=== PATIENT | male | born 1935 | race Caucasian/White ===

== ENCOUNTER 2018-08-14 02:26 | Inpatient (IN) | payer OTHER ==
[2018-08-14] MEDS: KETOROLAC 15 MG INJ IM (05:43)
[2018-08-14] MEDS: SOD CHLORIDE 0.9% 1,000 ML IV (11:25)
[2018-08-14 11:43] LABS: ADD MAN DIFF? NO
[2018-08-14 11:51] LABS: BASOPHILS % 0.1 % (0.0-2.0); EOSINOPHILS % 0.1 % (0.0-7.0); HEMATOCRIT 41.7 % (42.0-52.0); HEMOGLOBIN 13.6 g/dl (14.0-18.0); LYMPHOCYTES # 0.7 10^3/ul (0.8-2.9); MEAN CORPUSCULAR HEMOGLOBIN 30.8 pg (29.0-33.0); MEAN CORPUSCULAR HGB CONC 32.6 g/dl (32.0-37.0); MEAN CORPUSCULAR VOLUME 94.3 fl (82.0-101.0); MONOCYTE # 0.8 10^3/ul (0.3-0.9); MONOCYTES % 10.5 % (0.0-11.0); NEUTROPHIL # 5.8 10^3/ul (1.6-7.5); POSITIVE DIFF @See below; RED BLOOD COUNT 4.42 10^6/ul (4.70-6.10); RED CELL DISTRIBUTION WIDTH 13.8 % (11.5-14.5)
[2018-08-14 11:51] LABS: WHITE BLOOD COUNT 7.4 10^3/ul (4.8-10.8)
[2018-08-14 12:05] LABS: PLATELET COUNT 144 10^3/UL (140-415)
[2018-08-14 12:12] LABS: ANION GAP 9 (5-13); BLOOD UREA NITROGEN 19 mg/dl (7-20); CALCIUM 8.8 mg/dl (8.4-10.2); CARBON DIOXIDE 31 mmol/L (21-31); CHLORIDE 99 mmol/L (97-110); CREATININE 0.94 mg/dl (0.61-1.24); GLUCOSE 262 mg/dl (70-220); POTASSIUM 4.1 mmol/L (3.5-5.1); SODIUM 139 mmol/L (135-144)
[2018-08-14] MEDS: ASPIRIN 325 MG TAB PO (12:41)
[2018-08-14] MEDS ORDERED: ONDANSETRON 4 MG INJ IV ×2 (13:00→14:00)
[2018-08-14] MEDS ORDERED: ACETAMINOPHEN 325 MG TAB PO (13:00)
[2018-08-14] MEDS ORDERED: NITROGLYCERIN (SL) 0.4 MG TAB SL (14:00)
[2018-08-14] MEDS ORDERED: NACL 0.9% 3 ML SYG IV (14:00)
[2018-08-14] MEDS ORDERED: morphine 2 MG INJ IV (14:00)
[2018-08-14] MEDS ORDERED: GLUCOSE GEL 15 GRAM TUBE BUCCAL (15:00)
[2018-08-14] MEDS ORDERED: DEXTROSE 50% 50 ML SYRINGE IV ×2 (15:00)
[2018-08-14] MEDS ORDERED: GLUCAGON 1 MG INJ IM (15:00)
[2018-08-14] MEDS ORDERED: GLUCOSE GEL 15 GRAM TUBE PO ×2 (15:00)
[2018-08-14] MEDS ORDERED: hydrALAzine 20 MG INJ IV (16:00)
[2018-08-14] MEDS: ACETAMINOPHEN 325 MG TAB PO (16:35)
[2018-08-14] MEDS: METOPROLOL 25 MG TAB PO (16:36)
[2018-08-14 17:36] LABS: CREATINE KINASE 877 IU/L (23-200)
[2018-08-14 17:49] LABS: CK INDEX 0.3; CK-MB 2.67 ng/ml (0.0-2.4)
[2018-08-14 17:52] LABS: TROPONIN-I 0.346 ng/ml (0.000-0.120)
[2018-08-14] MEDS ORDERED: INSULIN ASPART [NOVOLOG] 3 ML PEN SC (17:55)
[2018-08-14] MEDS: FAMOTIDINE 20 MG TAB PO (21:52)
[2018-08-14] MEDS: INSULIN GLARGINE [LANTus] (100 UNITS/ML) SYG SC (21:56)
[2018-08-14] MEDS: LISINOPRIL 10 MG TAB PO (21:58)
[2018-08-14] MEDS: DEXTROSE 5%-0.45% NACL 1,000 ML IV (21:59)
[2018-08-14] MEDS: INSULIN ASPART [NOVOLOG] 3 ML PEN SC (22:07)
[2018-08-14 23:30] LABS: LACTIC ACID 1.5 mmol/L (0.5-2.0)
[2018-08-14 23:30] LABS: CREATINE KINASE 759 IU/L (23-200)
[2018-08-14 23:43] LABS: CK INDEX 0.3; CK-MB 2.24 ng/ml (0.0-2.4); TROPONIN-I 0.258 ng/ml (0.000-0.120)
[2018-08-15] MEDS: INSULIN ASPART [NOVOLOG] 3 ML PEN SC ×5 (00:35→16:34)
[2018-08-15] MEDS: ACCU-CHEK XX (00:59)
[2018-08-15 03:52] LABS: ADD MAN DIFF? NO
[2018-08-15 04:02] LABS: BASOPHILS % 0.2 % (0.0-2.0); EOSINOPHILS % 0.4 % (0.0-7.0); HEMATOCRIT 35.1 % (42.0-52.0); HEMOGLOBIN 11.6 g/dl (14.0-18.0); LYMPHOCYTES # 1.1 10^3/ul (0.8-2.9); LYMPHOCYTES % 19.4 % (15.0-51.0); MEAN CORPUSCULAR HEMOGLOBIN 31.2 pg (29.0-33.0); MEAN CORPUSCULAR VOLUME 94.4 fl (82.0-101.0); MEAN PLATELET VOLUME 9.6 fl (7.4-10.4); MONOCYTE # 0.7 10^3/ul (0.3-0.9); MONOCYTES % 13.2 % (0.0-11.0); NEUTROPHIL # 3.6 10^3/ul (1.6-7.5); NEUTROPHILS % 65.7 % (39.0-77.0); PLATELET COUNT 117 10^3/UL (140-415); RED BLOOD COUNT 3.72 10^6/ul (4.70-6.10); RED CELL DISTRIBUTION WIDTH 13.7 % (11.5-14.5)
[2018-08-15 04:02] LABS: WHITE BLOOD COUNT 5.5 10^3/ul (4.8-10.8)
[2018-08-15 04:12] LABS: LACTIC ACID 1.4 mmol/L (0.5-2.0)
[2018-08-15 04:16] LABS: ALANINE AMINOTRANSFERASE 25 IU/L (13-69); ALBUMIN 2.9 g/dl (3.3-4.9); ALBUMIN/GLOBULIN RATIO 0.93; ALKALINE PHOSPHATASE 64 IU/L (42-121); ANION GAP 7 (5-13); ASPARTATE AMINO TRANSFERASE 33 IU/L (15-46); BILIRUBIN,INDIRECT 0.6 mg/dl (0-1.1); BILIRUBIN,TOTAL 0.6 mg/dl (0.2-1.3); BLOOD UREA NITROGEN 22 mg/dl (7-20); CARBON DIOXIDE 30 mmol/L (21-31); CHLORIDE 103 mmol/L (97-110); CHOL/HDL RATIO 4.1 RATIO; CHOLESTEROL 100 mg/dl (100-200); CREATININE 0.77 mg/dl (0.61-1.24); GLUCOSE 175 mg/dl (70-220); HDL CHOLESTEROL 24 mg/dl (31-75); LDL CHOLESTEROL,CALCULATED 66 mg/dl; MAGNESIUM 1.8 mg/dl (1.7-2.5); PHOSPHORUS 3.2 mg/dl (2.5-4.9); POTASSIUM 3.8 mmol/L (3.5-5.1); SODIUM 140 mmol/L (135-144); TRIGLYCERIDES 51 mg/dl (0-149)
[2018-08-15 04:25] LABS: HEMOGLOBIN A1C 7.3 % (0-5.9)
[2018-08-15] MEDS: ACETAMINOPHEN 325 MG TAB PO ×2 (05:44→20:31)
[2018-08-15] MEDS: METOPROLOL 25 MG TAB PO (08:26)
[2018-08-15] MEDS: LISINOPRIL 10 MG TAB PO (08:28)
[2018-08-15] MEDS: FAMOTIDINE 20 MG TAB PO ×2 (08:28→20:30)
[2018-08-15] MEDS: ASPIRIN 81 MG TAB PO (08:28)
[2018-08-15] MEDS: ENOXAPARIN 40 MG/0.4 ML SYG SC (08:40)
[2018-08-15] MEDS: DEXTROSE 5%-0.45% NACL 1,000 ML IV (11:36)
[2018-08-15] MEDS: Insulin NOVOLOG SS MILD Algorithm (SS with meals and bedtime) SC (20:47)
[2018-08-15] MEDS: INSULIN GLARGINE [LANTus] (100 UNITS/ML) SYG SC (20:48)
[2018-08-15] MEDS ORDERED: INSULIN ASPART [NOVOLOG] 3 ML PEN SC (21:00)
[2018-08-16] MEDS: ACCUCHECK AT 2AM (Patients on SS coverage) XX (02:00)
[2018-08-16 06:25] LABS: ADD MAN DIFF? NO
[2018-08-16 06:27] LABS: WHITE BLOOD COUNT 6.9 10^3/ul (4.8-10.8)
[2018-08-16 06:27] LABS: BASOPHILS % 0.3 % (0.0-2.0); EOSINOPHILS # 0.2 10^3/ul (0.0-0.5); EOSINOPHILS % 3.2 % (0.0-7.0); HEMATOCRIT 38.7 % (42.0-52.0); HEMOGLOBIN 12.8 g/dl (14.0-18.0); LYMPHOCYTES # 1.8 10^3/ul (0.8-2.9); LYMPHOCYTES % 26.6 % (15.0-51.0); MEAN CORPUSCULAR HEMOGLOBIN 31.4 pg (29.0-33.0); MEAN CORPUSCULAR HGB CONC 33.1 g/dl (32.0-37.0); MEAN CORPUSCULAR VOLUME 94.9 fl (82.0-101.0); MEAN PLATELET VOLUME 9.5 fl (7.4-10.4); MONOCYTE # 0.8 10^3/ul (0.3-0.9); MONOCYTES % 11.8 % (0.0-11.0); PLATELET COUNT 170 10^3/UL (140-415); RED BLOOD COUNT 4.08 10^6/ul (4.70-6.10); RED CELL DISTRIBUTION WIDTH 13.4 % (11.5-14.5)
== END 2018-08-16 08:00 | disposition left against medical advice (07) | DRG 282 ==
LOC: E/R 02:26 → TEL 12:50
DX: I21.4 Non-ST elevation (NSTEMI) myocardial infarction (principal); R55 Syncope and collapse; I10 Essential (primary) hypertension; E11.9 Type 2 diabetes mellitus without complications; I48.91 Unspecified atrial fibrillation; M47.9 Spondylosis, unspecified; R53.81 Other malaise; E78.5 Hyperlipidemia, unspecified; R74.8 Abnormal levels of other serum enzymes; R29.6 Repeated falls; H54.62 Unqualified visual loss, left eye, normal vision right eye; S00.81XA Abrasion of other part of head, initial encounter; W19.XXXA Unspecified fall, initial encounter; Y92.009 Unspecified place in unspecified non-institutional (private) residence as the place of occurrence of the external cause
CPT/HCPCS: 36415; 70450; 70551; 71045; 72125; 73030-50; 80048; 80053; 80061; 82550; 82553; 82962; 83036; 83605; 83735; 84100; 84443; 84484; 85025; 87040; 87081; 87086; 93005; 93880; 93970; 96372; 97161; 99285-25